=== PATIENT | male | born 1985 | race Two or more races ===

== ENCOUNTER 2022-10-05 02:13 | Emergency (ER) | payer BC ==
[~2022-10-05] VITALS: Ht 177.8 cm; Wt 70.3 kg
[2022-10-05 02:25] VITALS: BP 126/70
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
== END 2022-10-05 03:23 | disposition home or self-care (01) ==
LOC: ER 02:19
DX: S20.219A Contusion of unspecified front wall of thorax, initial encounter (principal); Z60.2 Problems related to living alone; V43.62XA Car passenger injured in collision with other type car in traffic accident, initial encounter; Y93.89 Activity, other specified; Y92.89 Other specified places as the place of occurrence of the external cause; Y99.8 Other external cause status